=== PATIENT | female | born 1985 | race American Indian/Alaskan Native ===

== ENCOUNTER 2017-02-03 02:37 | Observation (INO) | payer MEDICAID, OTHER ==
[2017-02-03 02:55] VITALS: BMI 60.2
--- NOTE | 2017-02-03 03:11 | ED PDOC ---
Arrival/HPI - General Chief Complaint: Lower Extremity Problem/Injury Time Seen by Provider: 02/03/17 02:59 Historian: Patient - History of Present Illness Narrative History of Present Illness (Text): 02/03/17 03:08 Sydnee Barahona is a 31 year old female, whose past medical history includes obstructive sleep apnea, who presents to the Emergency department complaining of bilateral lower extremity swelling/redness/warmth. Patient states she has been experiencing bilateral lower extremity swelling intermittently for the past few months, right side greater than the left with associated pain for this past week. Patient reports she has a history of lower extremity cellulitis and notes she stands on her feet frequently at work. Patient denies any fever, chills, shortness of breath, nausea, vomiting, diarrhea, back pain, neck pain, headache, dizziness, or any other complaints. Time/Duration: Other (few months) Symptom Onset: Gradual Symptom Course: Unchanged, Intermittent Activities at Onset: Light Context: Home Past Medical History - Provider Review Nursing Documentation Reviewed: Yes - Cardiac Hx Cardiac Disorders: No - Pulmonary Hx Asthma: Yes Hx Sleep Apnea: Yes - Neurological Hx Neurological Disorder: No - HEENT Hx HEENT Disorder: No - Renal Hx Renal Disorder: No - Endocrine/Metabolic Hx Endocrine Disorders: No - Hematological/Oncological Hx Blood Disorders: No - Integumentary Hx Dermatological Disorder: No - Musculoskeletal/Rheumatological Hx Musculoskeletal Disorders: No - Gastrointestinal Hx Gastrointestinal Disorders: No - Genitourinary/Gynecological Hx Genitourinary Disorders: No - Psychiatric Hx Psychophysiologic Disorder: No Hx Substance Use: No Family/Social History - Physician Review Nursing Documentation Reviewed: Yes Family/Social History: No Known Family HX Smoking Status: Never Smoked Hx Alcohol Use: No Hx Substance Use: No Allergies/Home Meds Allergies/Adverse Reactions: Allergies Penicillins Allergy (Verified 02/03/17 03:02) SHORTNESS OF BREATH Home Medications: Home Meds Medication Instructions Recorded Confirmed No Known Home Med 02/03/17 02/03/17 Review of Systems - Physician Review All systems were reviewed & negative as marked: Yes - Review of Systems Constitutional: Normal. absent: Fevers Eyes: Normal ENT: Normal Respiratory: Normal. absent: SOB, Cough Cardiovascular: Normal. absent: Chest Pain Gastrointestinal: Normal. absent: Abdominal Pain, Diarrhea, Nausea, Vomiting Genitourinary Female: Normal. absent: Dysuria, Frequency, Hematuria, Urine Output Changes Musculoskeletal: Other (+bilateral lower extremity swelling). absent: Back Pain , Neck Pain Skin: Normal Neurological: Normal Endocrine: Normal Hemo/Lymphatic: Normal Psychiatric: Normal Physical Exam Vital Signs Reviewed: Yes Vital Signs Temp Pulse Resp BP Pulse Ox 02/03/17 05:37 76 21 132/82 100 02/03/17 02:54 98.1 F 76 19 152/78 H 100 Temperature: Afebrile Blood Pressure: Hypertensive Pulse: Regular Respiratory Rate: Normal Appearance: Positive for: Well-Appearing, Non-Toxic, Comfortable Pain Distress: None Mental Status: Positive for: Alert and Oriented X 3 - Systems Exam Head: Present: Atraumatic, Normocephalic Pupils: Present: PERRL Extroacular Muscles: Present: EOMI Conjunctiva: Present: Normal Mouth: Present: Moist Mucous Membranes Neck: Present: Normal Range of Motion Respiratory/Chest: Present: Clear to Auscultation, Good Air Exchange. No: Respiratory Distress, Accessory Muscle Use Cardiovascular: Present: Regular Rate and Rhythm, Normal S1, S2. No: Murmurs Abdomen: Present: Normal Bowel Sounds. No: Tenderness, Distention, Peritoneal Signs Upper Extremity: Present: Normal Inspection. No: Cyanosis, Edema Lower Extremity: Present: CALF TENDERNESS (Calf tenderness to right calf), NORMAL PULSES, Tenderness (Tenderness to anterior aspect of left lower leg), Erythema (Erythema to right lower leg with warmth ). No: Edema, Cyanosis, Deformity Neurological: Present: GCS=15, CN II-XII Intact, Speech Normal Skin: Present: Warm, Dry, Normal Color. No: Rashes Psychiatric: Present: Alert, Oriented x 3, Normal Insight, Normal Concentration Medical Decision Making ED Course and Treatment: 02/03/17 03:08 Impression: 31 year old female complaining of bilateral lower extremity swelling. Differential Diagnosis include but are not limited to: DVT vs. cellulitis Plan: -- US Duplex Lower Extremities -- Labs -- Urinalysis -- Reassess and disposition Progress Notes: 02/03/17 04:09 Reviewed sono, US Duplex Lower Extremities shows limited study, grossly normal. 02/03/17 05:04 Case discussed with medical review specialist long goods drier, who is aware and agrees with plan. 02/03/17 05:[address] Harper, who is aware and agrees with plan. Accepts pt in to hospitalist service. [facility] to [facility] observation for cellulitis. - Lab Interpretations Lab Results: 02/03/17 03:26 02/03/17 03:26 Lab Results 02/03/17 04:25: Urine Color Yellow, Urine Appearance Clear, Urine pH 6.0, Ur Specific [place] 1.025, Urine Protein Negative, Urine Glucose (UA) Negative, Urine Ketones Trace H, Urine Blood Negative, Urine Nitrate Negative, Urine Bilirubin Negative, Urine Urobilinogen 0.2, Ur Leukocyte Esterase Negative, Urine HCG, Qual Negative 02/03/17 03:26: WBC 6.8, RBC 4.56, Hgb 10.1 L, Hct 32.8 L, MCV 71.9 L, MCH 22.1 L, MCHC 30.8 L, RDW 17.2 H, Plt Count 330, MPV 9.6 02/03/17 03:26: Sodium 136, Potassium 4.1, Chloride 100, Carbon Dioxide 26, Anion Gap 14, BUN 16, Creatinine 0.7, Est GFR ( Amer) > 60, Est GFR (Non- Af Amer) > 60, Random Glucose 97, Calcium 8.8, Total Bilirubin 0.5, AST 23, ALT 33, Alkaline Phosphatase 57, Total Protein 8.0, Albumin 4.0, Globulin 4.0, Albumin/Globulin Ratio 1.0 L 02/03/17 03:26: PT 10.4, INR 0.96, APTT 29.6 I have reviewed the lab results: Yes - RAD Interpretation Radiology Orders: 02/03/17 03:11 DUPLEX LOWER EXTRM VEIN BILAT [US] Stat - Medication Orders Current Medication Orders: Acetaminophen (Tylenol 325mg Tab) 650 mg PO Q6 PRN PRN Reason: Pain, moderate (4-7) Docusate Sodium (Colace) 100 mg PO BID TONY Enoxaparin Sodium (Lovenox) 40 mg SC DAILY TONY PRN Reason: Protocol Famotidine (Pepcid) 20 mg PO BID TONY Vancomycin HCl (Vancomycin 1gm) 1 gm in 250 mls @ 167 mls/hr IVPB STAT STA PRN Reason: Protocol Stop: 02/03/17 06:45 Aztreonam (Azactam 1 Gm) 100 mls @ 100 mls/hr IVPB Q8 TONY PRN Reason: Protocol Stop: 02/03/17 22:59 Vancomycin HCl (Vancomycin 1gm) 1 gm in 250 mls @ 167 mls/hr IVPB Q12H TONY PRN Reason: Protocol Ketorolac Tromethamine (Toradol) 30 mg IVP Q6 PRN PRN Reason: Pain, severe (8-10) Discontinued Medications Aztreonam (Azactam 1 Gm) 100 mls @ 100 mls/hr IVPB STAT STA PRN Reason: Protocol Stop: 02/03/17 06:14 Last Admin: 02/03/17 05:44 Dose: 100 mls/hr - Scribe Statement The provider has reviewed the documentation as recorded by the Domingoibhallie Currie All medical record entries made by the Domingoibhallie were at my direction and personally dictated by me. I have reviewed the chart and agree that the record accurately reflects my personal performance of the history, physical exam, medical decision making, and the department course for this patient. I have also personally directed, reviewed, and agree with the discharge instructions and disposition. Disposition/Present on Arrival - Present on Arrival Any Indicators Present on Arrival: No History of DVT/PE: No History of Uncontrolled Diabetes: No Urinary Catheter: No History of Decub. Ulcer: No History Surgical Site Infection Following: None - Disposition Have Diagnosis and Disposition been Completed?: Yes Diagnosis: Cellulitis of leg Disposition: HOSPITALIZED Disposition Time: 05:18 Patient Problems: Current Active Problems Problem Status Onset Cellulitis of leg Acute Condition: GOOD
[2017-02-03 03:40] LABS: HEMATOCRIT 32.8 % (36.0-48.0); MEAN CELL VOLUME 71.9 fL (80.0-105.0); MEAN CORPUSCULAR HEMOGLOBIN 22.1 pg (25.0-35.0); MEAN CORPUSCULAR HGB CONC 30.8 g/dl (31.0-37.0); MEAN PLATELET VOLUME 9.6 fl (7.0-11.0); RED CELL DISTRIBUTION WIDTH 17.2 % (11.5-14.5); WHITE BLOOD COUNT 6.8 10^3/ul (4.5-11.0)
[2017-02-03 03:48] LABS: ALKALINE PHOSPHATASE 57 U/L (38-133); ALT/SGPT 33 U/L (7-56); AST/SGOT 23 U/L (15-39); BILIRUBIN,TOTAL 0.5 mg/dL (0.2-1.3); BLOOD UREA NITROGEN 16 mg/dL (7-21); CALCIUM 8.8 mg/dL (8.4-10.5); CARBON DIOXIDE 26 mmol/L (21-33); CHLORIDE 100 mmol/L (98-107); GFR AFRICAN-AMERICAN > 60; GLUCOSE,RANDOM 97 mg/dL (70-110); POTASSIUM 4.1 mmol/L (3.6-5.0); SODIUM 136 mmol/L (132-148)
[2017-02-03 04:02] LABS: INR 0.96 (0.93-1.08); PARTIAL THROMBOPLASTIN TIME 29.6 Seconds (23.7-30.8)
[2017-02-03 04:50] LABS: URINE BILIRUBIN NEGATIVE (NEGATIVE); URINE BLOOD NEGATIVE (NEGATIVE); URINE GLUCOSE (UA) NEGATIVE (NEGATIVE); URINE KETONE TRACE mg/dL (NEGATIVE); URINE LEUKOCYTE ESTERASE NEGATIVE Leu/uL (NEGATIVE); URINE PROTEIN NEGATIVE mg/dL (<30 mg/dL); URINE UROBILINOGEN 0.2 E.U./dL (<1 E.U./dL)
[2017-02-03 04:58] LABS: URINE APPEARANCE CLEAR (CLEAR); URINE COLOR YELLOW (YELLOW)
[2017-02-03] MEDS ORDERED: Aztreonam 1 Gm in NS 100mL 100 ML IVPB STA (05:15)
[2017-02-03] MEDS ORDERED: Vancomycin 1gm in NS 250ml 1 GM/250 ML BAG IVPB STA (05:16)
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
--- NOTE | 2017-02-03 09:07 | US ---
HISTORY: Leg pain and swelling. Evaluate for DVT PHYSICIAN(S): Mao Retana MD. TECHNIQUE: Duplex sonography and color-flow Doppler with graded compression were used to evaluate the deep venous systems of both lower extremities. FINDINGS: The exam is very limited by body habitus and edema. The tibial veins are not adequately seen. The visualized deep venous systems of both lower extremities are sonographically normal and compressible. Normal wave forms and augmentation are seen. There is no sonographic evidence for deep venous thrombosis in the visualized segments of both lower extremities. IMPRESSION: No sonographic evidence for deep venous thrombosis in the visualized segments of both lower extremities. Very limited study.
[2017-02-03] MEDS: Enoxaparin 40 mg Syringe SC SCH (09:29)
[2017-02-03] MEDS ORDERED: Aztreonam 1 Gm in NS 100mL 100 ML IVPB SCH (14:00)
--- NOTE | 2017-02-03 14:56 | CON ---
DATE: 02/03/2017 The patient seen in room 368, bed 2. CHIEF COMPLAINT: Lower extremity edema and erythema times several days. HISTORY OF PRESENT ILLNESS: This is a 31-year-old female with morbid obesity with a BMI of 60, who a lso has asthma and sleep apnea, who was seen in the Emergency Room by Dr. Shane Jay. The urmila ent is ALLERGIC TO PENICILLIN. The type of allergy is not clear. The patient was admitted with lowe r extremity erythema and swelling. REVIEW OF SYSTEMS: The patient denies any fevers and chills, no chest pain, shortness of breath or c ough, no hemoptysis, no abdominal pain, diarrhea or constipation. PAST MEDICAL HISTORY: Significant for asthma and sleep apnea. PAST SURGICAL HISTORY: Noncontributory. ALLERGIES: THE PATIENT IS ALLERGIC TO PENICILLIN, TYPE OF ALLERGY IS NOT CLEAR. PHYSICAL EXAMINATION: VITAL SIGNS: Temperature is 98, blood pressure is 150/70, respiratory rate of 18, it was up to 21, h eart rate of 76. HEENT: Unremarkable. NECK: Supple. LUNGS: Have decreased breath sounds. HEART: Normal S1, S2. ABDOMEN: Soft, nontender. LOWER EXTREMITIES: Reveal erythema and edema. No break in the skin. No discharge. She does have t inea on her feet. LABORATORY EXAMINATION: Reveals a white count of 6.8, hemoglobin of 10. Chemistries are normal. Ur inalysis is normal. There is a trace of ketones. No microbiology is available. The patient's blood sugar is 97. Review of the orders reveals the patient is on Azactam and vancomycin. ASSESSMENT AND PLAN: A 31-year-old female with morbid obesity, body mass index of 60, asthma, sleep apnea with bilateral lower extremity cellulitis. The patient is ALLERGIC TO PENICILLIN. We will tapan at the patient with vancomycin. No need for Azactam. It is unusual for her to have gram-negative ce llulitis. Will order an HIV test. May be able to use p.o. Zyvox upon discharge or p.o. Levaquin upon discharge. Lower extremity Dopplers are negative for deep venous thrombosis. I would recommend Lotr isone cream for lower extremities bilaterally once the erythema and edema is less. Jan Sánchez MD cc: 350 TT: 02/03/2017 14:55:19 Confirmation # [id number] Dictation # [id number] rn
[2017-02-03] MEDS: Clotrimazole/Betamethasone Cream(15 gm) TOP SCH (17:12)
[2017-02-03] MEDS: Vancomycin 1gm in NS 250ml 1 GM/250 ML BAG IVPB SCH (17:13)
[2017-02-03 17:43] VITALS: O2SAT 99
[2017-02-04] MEDS: Vancomycin 1gm in NS 250ml 1 GM/250 ML BAG IVPB SCH (06:02)
[2017-02-04 07:25] VITALS: BP 135/67; PULSE 73; RESP 18; TEMP 97.8
[2017-02-04 08:07] LABS: ADD MANUAL DIFF? NO
[2017-02-04 08:12] LABS: BASO # 0.03 K/mm3 (0.0-2.0); BASO % 0.6 % (0.0-3.0); EOS # 0.2 (0.0-0.7); EOS % 3.4 % (1.5-5.0); GRAN # 2.43 (1.4-6.5); GRAN % 46.1 % (50.0-68.0); LYMPH # 2.3 (1.2-3.4); LYMPH % 43.2 % (22.0-35.0); MEAN CELL VOLUME 72.9 fL (80.0-105.0); MEAN CORPUSCULAR HEMOGLOBIN 21.6 pg (25.0-35.0); MEAN CORPUSCULAR HGB CONC 29.7 g/dl (31.0-37.0); MEAN PLATELET VOLUME 9.9 fl (7.0-11.0); MONO # 0.4 (0.1-0.6); MONO % 6.7 % (1.0-6.0); PLATELET COUNT 318 10^3/uL (120.0-450.0); RED CELL DISTRIBUTION WIDTH 17.3 % (11.5-14.5); WHITE BLOOD COUNT 5.3 10^3/ul (4.5-11.0)
[2017-02-04 08:40] LABS: ALKALINE PHOSPHATASE 48 U/L (38-133); ALT/SGPT 29 U/L (7-56); AST/SGOT 23 U/L (15-39); BILIRUBIN,TOTAL 0.3 mg/dL (0.2-1.3); BLOOD UREA NITROGEN 8 mg/dL (7-21); CALCIUM 8.6 mg/dL (8.4-10.5); CARBON DIOXIDE 28 mmol/L (21-33); CHLORIDE 102 mmol/L (98-107); GFR AFRICAN-AMERICAN > 60; GLUCOSE,RANDOM 110 mg/dL (70-110); POTASSIUM 4.2 mmol/L (3.6-5.0); SODIUM 137 mmol/L (132-148); TOTAL PROTEIN 7.1 g/dL (5.8-8.3)
[2017-02-04] MEDS: Clotrimazole/Betamethasone Cream(15 gm) TOP SCH (09:05)
[2017-02-04] MEDS: Enoxaparin 40 mg Syringe SC SCH (09:06)
--- NOTE | 2017-02-04 10:15 | PN ---
DATE: 02/04/2017 The patient is in bed, in no acute distress, nontoxic. PHYSICAL EXAMINATION: VITAL SIGNS: Temperature is 98, blood pressure is 158/90, respiratory rate of 20. HEENT: Unremarkable. NECK: Supple. LUNGS: Have decreased breath sounds. HEART: Normal S1, S2. ABDOMEN: Soft, nontender. LABORATORY DATA: Reveals a white count of 5.3, hemoglobin of 9, platelets are noted. Chemistries ar e normal. Urinalysis is unremarkable. Microbiology reveals the blood cultures are no growth. ASSESSMENT AND PLAN: A 31-year-old female with morbid obesity, body mass index of 60, asthma, sleep apnea, bilateral lower extremity cellulitis, ALLERGIC TO PENICILLIN. On vancomycin and somewhat impr oving. Will follow closely with you. Jan Sánchez MD cc: 350 TT: 02/04/2017 10:14:06 Confirmation # [id number] Dictation # [id number] mn
--- NOTE | 2017-02-04 10:25 | CP.PCM.DIS ---
<Romina Erickson - Last Filed: 02/04/17 13:45> Provider - Provider Date of Admission: 02/03/17 05:17 Attending physician: Lou Wooten MD Consults: ID: Dr. Caballero Time Spent in preparation of Discharge (in minutes): 45 Diagnosis - Discharge Diagnosis (1) Obesity Status: Chronic (2) Tinea pedis Status: Chronic (3) Cellulitis of leg Status: Acute Hospital Course - Lab Results Lab Results: Micro Results 02/03/17 05:30 Blood Blood Culture - Preliminary NO GROWTH AFTER 24 HOURS Most Recent Lab Values WBC 5.3 10^3/ul (4.5-11.0) D 02/04/17 07:30 RBC 4.39 10^6/uL (3.5-6.1) 02/04/17 07:30 Hgb 9.5 gm/dL (12.0-16.0) L 02/04/17 07:30 Hct 32.0 % (36.0-48.0) L 02/04/17 07:30 MCV 72.9 fL (80.0-105.0) L 02/04/17 07:30 MCH 21.6 pg (25.0-35.0) L 02/04/17 07:30 MCHC 29.7 g/dl (31.0-37.0) L 02/04/17 07:30 RDW 17.3 % (11.5-14.5) H 02/04/17 07:30 Plt Count 318 10^3/uL (120.0-450.0) 02/04/17 07:30 MPV 9.9 fl (7.0-11.0) 02/04/17 07:30 Gran % 46.1 % (50.0-68.0) L 02/04/17 07:30 Lymph % (Auto) 43.2 % (22.0-35.0) H 02/04/17 07:30 Swift % (Auto) 6.7 % (1.0-6.0) H 02/04/17 07:30 Eos % (Auto) 3.4 % (1.5-5.0) 02/04/17 07:30 Baso % (Auto) 0.6 % (0.0-3.0) 02/04/17 07:30 Gran # 2.43 (1.4-6.5) 02/04/17 07:30 Lymph # 2.3 (1.2-3.4) 02/04/17 07:30 Swift # 0.4 (0.1-0.6) 02/04/17 07:30 Eos # 0.2 (0.0-0.7) 02/04/17 07:30 Baso # 0.03 K/mm3 (0.0-2.0) 02/04/17 07:30 PT 10.4 Seconds (9.9-11.8) 02/03/17 03:26 INR 0.96 (0.93-1.08) 02/03/17 03:26 APTT 29.6 Seconds (23.7-30.8) 02/03/17 03:26 Sodium 137 mmol/L (132-148) 02/04/17 07:30 Potassium 4.2 mmol/L (3.6-5.0) 02/04/17 07:30 Chloride 102 mmol/L (98-107) 02/04/17 07:30 Carbon Dioxide 28 mmol/L (21-33) 02/04/17 07:30 Anion Gap 11 (10-20) 02/04/17 07:30 BUN 8 mg/dL (7-21) 02/04/17 07:30 Creatinine 0.6 mg/dL (0.5-1.4) 02/04/17 07:30 Est GFR ( Amer) > 60 02/04/17 07:30 Est GFR (Non-Af Amer) > 60 02/04/17 07:30 Random Glucose 110 mg/dL (70-110) 02/04/17 07:30 Hemoglobin A1c 5.5 % (4.2-6.5) 02/03/17 05:30 Calcium 8.6 mg/dL (8.4-10.5) 02/04/17 07:30 Total Bilirubin 0.3 mg/dL (0.2-1.3) 02/04/17 07:30 AST 23 U/L (15-39) 02/04/17 07:30 ALT 29 U/L (7-56) 02/04/17 07:30 Alkaline Phosphatase 48 U/L (38-133) 02/04/17 07:30 NT-Pro-B Natriuret Pep 62.5 pg/mL (0-450) 02/03/17 05:30 Total Protein 7.1 g/dL (5.8-8.3) 02/04/17 07:30 Albumin 3.5 g/dL (3.0-4.8) 02/04/17 07:30 Globulin 3.6 gm/dL 02/04/17 07:30 Albumin/Globulin Ratio 1.0 (1.1-1.8) L 02/04/17 07:30 Urine Color Yellow (YELLOW) 02/03/17 04:25 Urine Appearance Clear (CLEAR) 02/03/17 04:25 Urine pH 6.0 (4.7-8.0) 02/03/17 04:25 Ur Specific [place] 1.025 (1.005-1.035) 02/03/17 04:25 Urine Protein Negative mg/dL (<30 mg/dL) 02/03/17 04:25 Urine Glucose (UA) Negative mg/dL (NEGATIVE) 02/03/17 04:25 Urine Ketones Trace mg/dL (NEGATIVE) H 02/03/17 04:25 Urine Blood Negative (NEGATIVE) 02/03/17 04:25 Urine Nitrate Negative (NEGATIVE) 02/03/17 04:25 Urine Bilirubin Negative (NEGATIVE) 02/03/17 04:25 Urine Urobilinogen 0.2 E.U./dL (<1 E.U./dL) 02/03/17 04:25 Ur Leukocyte Esterase Negative Castillo/uL (NEGATIVE) 02/03/17 04:25 Urine HCG, Qual Negative (NEGATIVE) 02/03/17 04:25 - Hospital Course Hospital Course: 31F w/PMH sig for morbid obesity, sleep apnea, and asthma admitted for B/L LE pain & swelling x 1 yr. Pt reports that over the past year, she has had intermittent pain & B/L LE swelling, which is associated to standing for long periods of time and sitting up. Over the past 2 weeks, the pain and swelling has worsened. Pt reports inability to get up, ambulate, place pressure on legs , bend right knee due to pain/stiffness. Pain is sharp, radiates up leg to thigh, located at medial aspect of proximal leg, intermittent. Pain is alleviated by Tylenol 3 and Percocet, minimally alleviated by Naproxen. No inciting or aggravating factors identified. LLE pain > RLE. Pt has taken OTC water pills for swelling with some resolution, but swelling recurs. Pt reports new onset of numbness on anterior aspect of LLE. Has recently lost 27lbs via a low carb diet, has not incorporated exercise. Admits to muscle spasms, constipation, polydipsia. Denies N/V/F/C, SOB, CP, abdominal pain, changes in vision, MARTIN, recent illness, sore throat, rhinorrhea, changes in urinary habits. Patient was started on broad spectrum antibiotics on admission. Lower extremity ultrasound was negative for DVT. Patient's swelling and pain improved. Patient was also found to have rash consistent with tinea pedis on feet. She was started on topical anti-fungal. Patient also received physical therapy during her stay and was given exercises to further improve the lower extremity pain. Patient was also found to have microcytic anemia. She was discharged with iron supplements and asked ot follow up with PMD for further workup. Before leaving patient was interested in knowing her limitations and applying for disability due to low back pain. Patient has no disability noted. Physical therapy cleared patient for discharge and asked her to follow up outpatient for physical therapy. Had long discussion with patient stating that she needs to follow up outpatient with PMD to apply for this process. Patient also requested pain medication multiple times before leaving. She was given Motrin 400 mg TID prn for 2 days and asked to follow up with her PMD as outpatient. Patient is to follow up with PMD of her choice upon discharge. Patient i s also given information about the [facility]. Patient is encouraged to follow a strict low fat low carbohydrate diet and increase her exercise. Patient is discharged on the following medications: lortisone topical cream BID for 10 days, levaquid 750 mg po qd #7 tabs, and flexeril 5 mg PO TID #9 tabs, ferrous sulfate 325 mg po qd #30 and colace 100 mg po BID prn constipation #30 tabs. Medications will be delivered to patient before leaving. Patient is also given referral to physical therapy outpatient with diagnosis of low back pain for 3 times per week for 4 weeks. Please see MAR for full details. - Date & Time of H&P Date of H&P: 02/04/17 Time of H&P: 10:24 Discharge Exam - Head Exam Head Exam: ATRAUMATIC, NORMAL INSPECTION, NORMOCEPHALIC - Eye Exam Eye Exam: EOMI - ENT Exam ENT Exam: Mucous Membranes Moist - Respiratory Exam Respiratory Exam: Clear to PA & Lateral, NORMAL BREATHING PATTERN. absent: Rales, Rhonchi, Wheezes - Cardiovascular Exam Cardiovascular Exam: REGULAR RHYTHM, +S1, +S2. absent: Diastolic murmur, Gallop , Rubs, Systolic Murmur - GI/Abdominal Exam GI & Abdominal Exam: Normal Bowel Sounds, Soft, Unremarkable. absent: Distended , Firm, Guarding, Rigid, Tenderness - Extremities Exam Additional comments: Trace pretibial edema noted B/L - Neurological Exam Neurological exam: Alert, Oriented x3 - Psychiatric Exam Psychiatric exam: Normal Affect, Normal Mood - Skin Additional comments: dry rash noted on medial aspect of right foot. Discharge Plan - Discharge Medications Prescriptions: Clotrimazole/Betamethasone [Lotrisone] 15 gm EXT BID #1 tube Cyclobenzaprine [Flexeril] 5 mg PO TID PRN #9 tab PRN Reason: Muscle Spasm Docusate [Colace] 100 mg PO BID PRN #30 cap PRN Reason: Constipation Ferrous Sulfate 325 mg PO DAILY #30 tablet Ibuprofen [Motrin] 400 mg PO TID PRN #6 tab PRN Reason: Pain, Moderate (4-7) levoFLOXacin [Levaquin] 750 mg PO DAILY #7 tab - Follow Up Plan Condition: GOOD Disposition: HOME/ ROUTINE Instructions: Cellulitis (DC), Cellulitis (GEN), Obesity (DC) Additional Instructions: Patient is to follow up with PMD of her choice upon discharge. Patient i s also given information about the [facility]. Patient is encouraged to follow a strict low fat low carbohydrate diet and increase her exercise. Patient is discharged on the following medications: lortisone topical cream BID for 10 days, levaquid 750 mg po qd #7 tabs, and flexeril 5 mg PO TID #9 tabs, ferrous sulfate 325 mg po qd #30 and colace 100 mg po BID prn constipation #30 tabs, Motrin 400 mg PO TID prn #6 tabs. Medications will be delivered to patient before leaving. Patient is also given referral to physical therapy outpatient with diagnosis of low back pain for 3 times per week for 4 weeks. <Lou Wooten - Last Filed: 02/05/17 13:28> Provider - Provider Date of Admission: 02/03/17 05:17 Attending physician: Lou Wooten MD Hospital Course - Lab Results Lab Results: Micro Results 02/03/17 05:30 Blood Blood Culture - Preliminary NO GROWTH AFTER 48 HOURS Most Recent Lab Values WBC 5.3 10^3/ul (4.5-11.0) D 02/04/17 07:30 RBC 4.39 10^6/uL (3.5-6.1) 02/04/17 07:30 Hgb 9.5 gm/dL (12.0-16.0) L 02/04/17 07:30 Hct 32.0 % (36.0-48.0) L 02/04/17 07:30 MCV 72.9 fL (80.0-105.0) L 02/04/17 07:30 MCH 21.6 pg (25.0-35.0) L 02/04/17 07:30 MCHC 29.7 g/dl (31.0-37.0) L 02/04/17 07:30 RDW 17.3 % (11.5-14.5) H 02/04/17 07:30 Plt Count 318 10^3/uL (120.0-450.0) 02/04/17 07:30 MPV 9.9 fl (7.0-11.0) 02/04/17 07:30 Gran % 46.1 % (50.0-68.0) L 02/04/17 07:30 Lymph % (Auto) 43.2 % (22.0-35.0) H 02/04/17 07:30 Swift % (Auto) 6.7 % (1.0-6.0) H 02/04/17 07:30 Eos % (Auto) 3.4 % (1.5-5.0) 02/04/17 07:30 Baso % (Auto) 0.6 % (0.0-3.0) 02/04/17 07:30 Gran # 2.43 (1.4-6.5) 02/04/17 07:30 Lymph # 2.3 (1.2-3.4) 02/04/17 07:30 Swift # 0.4 (0.1-0.6) 02/04/17 07:30 Eos # 0.2 (0.0-0.7) 02/04/17 07:30 Baso # 0.03 K/mm3 (0.0-2.0) 02/04/17 07:30 PT 10.4 Seconds (9.9-11.8) 02/03/17 03:26 INR 0.96 (0.93-1.08) 02/03/17 03:26 APTT 29.6 Seconds (23.7-30.8) 02/03/17 03:26 Sodium 137 mmol/L (132-148) 02/04/17 07:30 Potassium 4.2 mmol/L (3.6-5.0) 02/04/17 07:30 Chloride 102 mmol/L (98-107) 02/04/17 07:30 Carbon Dioxide 28 mmol/L (21-33) 02/04/17 07:30 Anion Gap 11 (10-20) 02/04/17 07:30 BUN 8 mg/dL (7-21) 02/04/17 07:30 Creatinine 0.6 mg/dL (0.5-1.4) 02/04/17 07:30 Est GFR ( Amer) > 60 02/04/17 07:30 Est GFR (Non-Af Amer) > 60 02/04/17 07:30 Random Glucose 110 mg/dL (70-110) 02/04/17 07:30 Hemoglobin A1c 5.5 % (4.2-6.5) 02/03/17 05:30 Calcium 8.6 mg/dL (8.4-10.5) 02/04/17 07:30 Total Bilirubin 0.3 mg/dL (0.2-1.3) 02/04/17 07:30 AST 23 U/L (15-39) 02/04/17 07:30 ALT 29 U/L (7-56) 02/04/17 07:30 Alkaline Phosphatase 48 U/L (38-133) 02/04/17 07:30 NT-Pro-B Natriuret Pep 62.5 pg/mL (0-450) 02/03/17 05:30 Total Protein 7.1 g/dL (5.8-8.3) 02/04/17 07:30 Albumin 3.5 g/dL (3.0-4.8) 02/04/17 07:30 Globulin 3.6 gm/dL 02/04/17 07:30 Albumin/Globulin Ratio 1.0 (1.1-1.8) L 02/04/17 07:30 Urine Color Yellow (YELLOW) 02/03/17 04:25 Urine Appearance Clear (CLEAR) 02/03/17 04:25 Urine pH 6.0 (4.7-8.0) 02/03/17 04:25 Ur Specific [place] 1.025 (1.005-1.035) 02/03/17 04:25 Urine Protein Negative mg/dL (<30 mg/dL) 02/03/17 04:25 Urine Glucose (UA) Negative mg/dL (NEGATIVE) 02/03/17 04:25 Urine Ketones Trace mg/dL (NEGATIVE) H 02/03/17 04:25 Urine Blood Negative (NEGATIVE) 02/03/17 04:25 Urine Nitrate Negative (NEGATIVE) 02/03/17 04:25 Urine Bilirubin Negative (NEGATIVE) 02/03/17 04:25 Urine Urobilinogen 0.2 E.U./dL (<1 E.U./dL) 02/03/17 04:25 Ur Leukocyte Esterase Negative Castillo/uL (NEGATIVE) 02/03/17 04:25 Urine HCG, Qual Negative (NEGATIVE) 02/03/17 04:25 HIV 1&2 Ag/Ab, 4th Gen Nonreactive (Nonreactive) 02/04/17 07:30 Attending/Attestation - Attestation I have personally seen and examined this patient.: Yes I have fully participated in the care of the patient.: Yes I have reviewed all pertinent clinical information, including history, physical exam and plan: Yes Notes (Text): 02/05/17 13:25 Attending note; Patient seen and examined with resident. Patient is a 31-year-old morbidly obese female admitted with right lower extremity cellulitis. Treated with IV vancomycin. ID evaluation appreciated. Patient was also treated for tenia pedis. Doppler of the lower extremities negative. Patient complaint of muscle spasms in the back and occasional numbness in the legs upon prolonged sitting. Physical therapy evaluation appreciated. Outpatient PT prescription given. Flexeril given. Patient wants disability paperwork to be filled. Patient is currently not meeting criteria for disability. Advised to follow-up with PMD of choice. Diagnosis; Lower extremity cellulitis Tenia pedis Morbid obesity Anemia
== END 2017-02-04 15:57 | disposition home or self-care (01) ==
LOC: ED 02:37 → ERH 05:17 → 3RNO 06:40
PROVIDERS: ADMIT Internal Medicine; ATTEND Internal Medicine
DX: L03.115 Cellulitis of right lower limb (principal); L03.116 Cellulitis of left lower limb; B35.3 Tinea pedis; E66.01 Morbid (severe) obesity due to excess calories; Z68.44 Body mass index [BMI] 60.0-69.9, adult; J45.909 Unspecified asthma, uncomplicated; G47.33 Obstructive sleep apnea (adult) (pediatric); D50.9 Iron deficiency anemia, unspecified; K59.00 Constipation, unspecified; R63.1 Polydipsia; Z87.891 Personal history of nicotine dependence; Z88.0 Allergy status to penicillin; R20.0 Anesthesia of skin
CPT/HCPCS: 36415; 80053; 81003; 83036; 83880; 84703; 85025; 85027; 85610; 85730; 87040; 93970; 96365; 97116; 97162; 97530; 99285; G0378; G8978; G8979; G8980; J1650; J1885

== ENCOUNTER 2018-07-26 14:19 | Emergency (ER) | payer MEDICAID, OTHER ==
[2018-07-26 14:40] VITALS: BMI 57.9
--- NOTE | 2018-07-26 15:02 | ED PDOC ---
Arrival/HPI - General Chief Complaint: Female Genitourinary Time Seen by Provider: 07/26/18 14:40 Historian: Patient - History of Present Illness Narrative History of Present Illness (Text): 07/26/18 14:55 33yo morbidly, morbidly obese female with pmhx of Asthma and sleep apnea present to ED requesting a test. States her LMP was 3months ago and she took home test and it showed inconclusive. States he had history of irregular period in the past, but her period became more regular as she grew up. States she started spotting today and had lower abdominal cramping, which is similar to the symptoms she had 6years ago when she had miscarriage so she cameto the ED for test to r/o miscarriage. She denies any other complaint. Past Medical History - Provider Review Nursing Documentation Reviewed: Yes - Infectious Disease Hx of Infectious Diseases: None - Cardiac Hx Cardiac Disorders: No - Pulmonary Hx Asthma: Yes Hx Sleep Apnea: Yes - Neurological Hx Neurological Disorder: No - HEENT Hx HEENT Disorder: No - Renal Hx Renal Disorder: No - Endocrine/Metabolic Hx Endocrine Disorders: No - Hematological/Oncological Hx Blood Disorders: No - Integumentary Hx Dermatological Disorder: No - Musculoskeletal/Rheumatological Hx Falls: No - Gastrointestinal Hx Gastrointestinal Disorders: No - Genitourinary/Gynecological Hx Genitourinary Disorders: No - Psychiatric Hx Psychophysiologic Disorder: No Hx Substance Use: No Family/Social History - Physician Review Nursing Documentation Reviewed: Yes Family/Social History: Unknown Family HX Smoking Status: Former Smoker Hx Alcohol Use: No Hx Substance Use: No Allergies/Home Meds Allergies/Adverse Reactions: Allergies Penicillins Allergy (Verified 02/03/17 03:02) SHORTNESS OF BREATH Review of Systems - Physician Review All systems were reviewed & negative as marked: Yes - Review of Systems Constitutional: Normal Eyes: Normal ENT: Normal Respiratory: Normal Cardiovascular: Normal Gastrointestinal: Abdominal Pain Genitourinary Female: Vaginal Bleeding Musculoskeletal: Normal Skin: Normal Neurological: Normal Endocrine: Normal Hemo/Lymphatic: Normal Psychiatric: Normal Physical Exam Vital Signs Reviewed: Yes Temperature: Afebrile Blood Pressure: Normal Pulse: Regular Respiratory Rate: Normal Appearance: Positive for: Well-Appearing, Non-Toxic, Comfortable Pain Distress: None Mental Status: Positive for: Alert and Oriented X 3 - Systems Exam Head: Present: Atraumatic, Normocephalic Pupils: Present: PERRL Extroacular Muscles: Present: EOMI Conjunctiva: Present: Normal Mouth: Present: Moist Mucous Membranes Neck: Present: Normal Range of Motion Respiratory/Chest: Present: Clear to Auscultation, Good Air Exchange. No: Respiratory Distress, Accessory Muscle Use Cardiovascular: Present: Regular Rate and Rhythm, Normal S1, S2. No: Murmurs Abdomen: Present: Normal Bowel Sounds, Other (Soft). No: Tenderness, Distention, Peritoneal Signs, Guarding, McBurney's Point Tender Back: Present: Normal Inspection Upper Extremity: Present: Normal Inspection. No: Cyanosis, Edema Lower Extremity: Present: Normal Inspection. No: Edema Neurological: Present: GCS=15, CN II-XII Intact, Speech Normal Skin: Present: Warm, Dry, Normal Color. No: Rashes Psychiatric: Present: Alert, Oriented x 3, Normal Insight, Normal Concentration Medical Decision Making ED Course and Treatment: 07/26/18 18:46 Pt presented for stated history. Her Upreg was negative in ED and it was DW the pt. Referred to a MEDIATOR for possible oral contraceptive to reset her period. Disposition/Present on Arrival - Present on Arrival Any Indicators Present on Arrival: No History of DVT/PE: No History of Uncontrolled Diabetes: No Urinary Catheter: No History of Decub. Ulcer: No History Surgical Site Infection Following: None - Disposition Have Diagnosis and Disposition been Completed?: Yes Diagnosis: Negative test, Dysmenorrhea Disposition: HOME/ ROUTINE Disposition Time: 15:00 Patient Plan: Discharge Condition: STABLE Discharge Instructions (ExitCare): Tests, Menstrual Cramps (DC) Additional Instructions: Follow up with your Doctor Return to ED for any new or worsening symptoms Referrals: Addison Sue MD [Staff Provider] - Follow up with primary Forms: [employer] (Kyrgyz)
[2018-07-26 15:23] VITALS: BP 122/74; O2SAT 100
[2018-07-26 16:03] VITALS: PULSE 86; RESP 17; TEMP 97.6
== END 2018-07-26 15:15 | disposition home or self-care (01) ==
LOC: ED 14:19
DX: Z32.02 Encounter for pregnancy test, result negative (principal); N94.6 Dysmenorrhea, unspecified

== ENCOUNTER 2018-09-06 15:53 | Emergency (ER) | payer OTHER ==
[2018-09-06 15:53] VITALS: BMI 57.9
[2018-09-06 17:19] VITALS: RESP 20; O2SAT 100
--- NOTE | 2018-09-06 17:43 | ED PDOC ---
Arrival/HPI - General Chief Complaint: Trauma Time Seen by Provider: 09/06/18 15:59 - History of Present Illness Narrative History of Present Illness (Text): 09/06/18 17:44 33 yr old F w/ no ppmhx p/w R shoulder, elbow and wrist pain. Pt notes that yesterday he was sitting on a regular sized stool when the seat broke underneath her and she fell onto her R side of her body. She notes only impacting her R shoulder, R elbow and R wrist. No head impact or LOC. No neck pain. No abdominal pain or back pain. No shoulder pain. No other complaints. Past Medical History - Infectious Disease Hx of Infectious Diseases: None - Cardiac Hx Cardiac Disorders: No - Pulmonary Hx Asthma: Yes Hx Sleep Apnea: Yes - Neurological Hx Neurological Disorder: No - HEENT Hx HEENT Disorder: No - Renal Hx Renal Disorder: No - Endocrine/Metabolic Hx Endocrine Disorders: No - Hematological/Oncological Hx Blood Disorders: No - Integumentary Hx Dermatological Disorder: No - Musculoskeletal/Rheumatological Hx Falls: No - Gastrointestinal Hx Gastrointestinal Disorders: No - Genitourinary/Gynecological Hx Genitourinary Disorders: No - Psychiatric Hx Psychophysiologic Disorder: No Hx Substance Use: No - Anesthesia Hx Anesthesia: Yes Hx Anesthesia Reactions: No Hx Malignant Hyperthermia: No Family/Social History Family/Social History: Unknown Family HX Smoking Status: Former Smoker Hx Alcohol Use: No Hx Substance Use: No Allergies/Home Meds Allergies/Adverse Reactions: Allergies Penicillins Allergy (Verified 02/03/17 03:02) SHORTNESS OF BREATH Review of Systems - Review of Systems Constitutional: absent: Fatigue, Weight Change, Fevers, Night Sweats Eyes: absent: Vision Changes, Photophobia ENT: absent: Hearing Changes, Tinnitus Respiratory: absent: SOB, Cough Cardiovascular: absent: Chest Pain, Palpitations, Edema Gastrointestinal: absent: Abdominal Pain, Stool Changes, Constipation, Diarrhea, Nausea, Vomiting Genitourinary Female: absent: Dysuria, Frequency, Hematuria Musculoskeletal: Arthralgias (R elbow, shoulder and wrist). absent: Back Pain Skin: absent: Rash, Pruritis, Skin Lesions, Laceration Neurological: absent: Headache, Dizziness Psychiatric: absent: Anxiety Physical Exam Vital Signs Temp Pulse Resp BP Pulse Ox 09/06/18 15:53 98.4 F 74 20 142/86 100 Temperature: Afebrile Blood Pressure: Normal Pulse: Regular Respiratory Rate: Normal Appearance: Positive for: Well-Appearing Pain Distress: None Mental Status: Positive for: Alert and Oriented X 3 - Systems Exam Head: Present: Atraumatic, Normocephalic Pupils: Present: PERRL Extroacular Muscles: Present: EOMI Conjunctiva: Present: Normal Ears: Present: Normal Mouth: Present: Moist Mucous Membranes Pharnyx: Present: Normal, ERYTHEMA Nose (External): Present: Atraumatic Nose (Internal): No: Septal Hematoma Neck: Present: Normal Range of Motion. No: Meningeal Signs, MIDLINE TENDERNESS Respiratory/Chest: Present: Clear to Auscultation, Good Air Exchange Cardiovascular: Present: Regular Rate and Rhythm, Normal S1, S2. No: Murmurs Abdomen: Present: Normal Bowel Sounds. No: Tenderness, Distention, Rebound, Guarding Back: Present: Normal Inspection. No: CVA Tenderness Upper Extremity: Present: Normal Inspection, Normal ROM, NORMAL PULSES, Neurovascularly Intact, Other (R snuffbox tenderness pain, N/V intact. ). No: Cyanosis, Edema Lower Extremity: Present: Normal Inspection, NORMAL PULSES, Neurovascularly Intact, Capillary Refill < 2 s. No: Edema, CALF TENDERNESS Neurological: Present: GCS=15, CN II-XII Intact, Speech Normal Medical Decision Making ED Course and Treatment: 09/06/18 18:46 33 yr old F p/w accidental fall onto R shoulder, wrist and elbow. R snuffbox tenderness on exam. No N/V issues noted in any extremity. Normal neuro exam. Walking well in NAD. No blood thinners. Pt notes worsening pain and came to ED. Pelvis NOn-ttp. No RLE or LLE pain. No vertebral Tenderness. Pending XR. 09/06/[address] Chavez Pending XR pt in NAD - RAD Interpretation Radiology Orders: 09/06/18 17:26 CHEST TWO VIEWS (PA/LAT) [RAD] Stat ELBOW RIGHT 3 VIEWS ROUTINE [RAD] Stat SHOULDER RIGHT [RAD] Stat WRIST, RIGHT 3 VIEWS [RAD] Stat Disposition/Present on Arrival - Present on Arrival Any Indicators Present on Arrival: No History of DVT/PE: No History of Uncontrolled Diabetes: No Urinary Catheter: No History of Decub. Ulcer: No History Surgical Site Infection Following: None - Disposition Have Diagnosis and Disposition been Completed?: No Diagnosis: Right wrist injury Disposition: HOME/ ROUTINE Disposition Time: 19:00 Condition: GOOD Discharge Instructions (ExitCare): Common Wrist Injuries Additional Instructions: use splint follow up with orthopedics Prescriptions: Tramadol HCl [Ultram] 50 mg PO QID #8 tab Referrals: Saurav Rosenberg III, MD [Medical Doctor] - Follow up with primary Andrea Argueta MD [Primary Care Provider] - Follow up with primary Forms: [employer] ([place]), WORK NOTE
--- NOTE | 2018-09-06 20:34 | ED PDOC ---
Physical Exam Vital Signs Temp Pulse Resp BP Pulse Ox 09/06/18 15:53 98.4 F 74 20 142/86 100 Medical Decision Making ED Course and Treatment: 09/06/18 19:00 Case endorsed to me by Dr. Kimberly Murillo, pending XR, re-evaluation, and final disposition. 09/06/18 20:32 Reviewed radiology, XR Right Wrist shows no acute processes, no fractures. XR Right Elbow shows no acute processes, no fractures. XR Right Shoulder shows no acute processes, no fractures. CXR shows no acute processes, no fractures. - RAD Interpretation Radiology Orders: 09/06/18 17:26 CHEST ONE VIEW [RAD] Stat ELBOW RIGHT 3 VIEWS ROUTINE [RAD] Stat SHOULDER RIGHT [RAD] Stat WRIST, RIGHT 3 VIEWS [RAD] Stat [employer] Shop Supervisor: ED Physician Disposition/Present on Arrival - Present on Arrival Any Indicators Present on Arrival: No History of DVT/PE: No History of Uncontrolled Diabetes: No Urinary Catheter: No History of Decub. Ulcer: No History Surgical Site Infection Following: None - Disposition Have Diagnosis and Disposition been Completed?: Yes Diagnosis: Right wrist injury Disposition: HOME/ ROUTINE Disposition Time: 20:55 Condition: GOOD Discharge Instructions (ExitCare): Common Wrist Injuries Additional Instructions: use splint follow up with orthopedics Prescriptions: Tramadol HCl [Ultram] 50 mg PO QID #8 tab Referrals: Andrea Argueta MD [Primary Care Provider] - Follow up with primary Saurav Rosenberg III, MD [Medical Doctor] - Follow up with primary Forms: [employer] (Pashto), WORK NOTE
[2018-09-06] MEDS ORDERED: TraMADol/Apap 37.5/325 mg Tab PO STA (20:55)
[2018-09-06 21:48] VITALS: BP 126/86; PULSE 86; TEMP 98
--- NOTE | 2018-09-07 09:21 | RAD ---
Date of service: 09/06/2018 PROCEDURE: Radiographs of the Right Shoulder HISTORY: R shoulder pain COMPARISON: No prior. FINDINGS: BONES: No acute fracture or destructive bony lesion identified. JOINTS: Normal. Glenohumeral and acromioclavicular joints preserved. No osteoarthritis. SOFT TISSUES: Normal. OTHER FINDINGS: None. IMPRESSION: Unremarkable radiographs of the right shoulder.
--- NOTE | 2018-09-07 09:21 | RAD ---
Date of service: 09/06/2018 PROCEDURE: Right Wrist Radiographs. HISTORY: R wrist pain COMPARISON: None. FINDINGS: BONES: No acute fracture or destructive bony lesion identified. Navicular bone appears intact. JOINTS: Normal. No dislocation. SOFT TISSUES: Normal. OTHER FINDINGS: None. IMPRESSION: Unremarkable right wrist radiographs.
--- NOTE | 2018-09-07 11:23 | RAD ---
Date of service: 09/06/2018 HISTORY: r shoulder pain COMPARISON: Portable chest 09/13/2016. FINDINGS: LUNGS: No active pulmonary disease. PLEURA: No significant pleural effusion identified, no pneumothorax apparent. CARDIOVASCULAR: No aortic atherosclerotic calcification present. Normal cardiac size. No pulmonary vascular congestion. OSSEOUS STRUCTURES: No significant abnormalities. VISUALIZED UPPER ABDOMEN: Normal. OTHER FINDINGS: Bilateral breasts exert artifacts over the medial bases bilaterally. IMPRESSION: No interval acute cardiopulmonary disease appreciated.
--- NOTE | 2018-09-07 11:24 | RAD ---
Date of service: 09/06/2018 PROCEDURE: Radiographs of the right elbow. HISTORY: pain COMPARISON: No prior. FINDINGS: BONES: No acute fracture or destructive bony lesion identified. JOINTS: No subluxation or dislocation identified. SOFT TISSUES: Normal. JOINT EFFUSION: None. OTHER FINDINGS: None. IMPRESSION: Unremarkable radiographs of the right elbow.
== END 2018-09-06 21:47 | disposition home or self-care (01) ==
LOC: ED 15:53
DX: S69.91XA Unspecified injury of right wrist, hand and finger(s), initial encounter (principal); W07.XXXA Fall from chair, initial encounter; Y92.89 Other specified places as the place of occurrence of the external cause; Y99.0 Civilian activity done for income or pay

== ENCOUNTER 2018-11-01 15:46 | Emergency (ER) | payer MEDICAID, OTHER ==
[2018-11-01 16:20] VITALS: RESP 18; TEMP 98.5; O2SAT 97; BMI 55.7
--- NOTE | 2018-11-01 18:40 | ED PDOC ---
Arrival/HPI - General Chief Complaint: Weakness/Neurological Deficit Time Seen by Provider: 11/01/18 15:51 Historian: Patient - History of Present Illness Narrative History of Present Illness (Text): 11/01/18 18:28 33yo morbidly obese female female with past medical history of sleep apnea and Asthma who present with complaint of right arm pain and back x weeks. Patient states pain started after trauma on 09/06/18 . States she was seen here s/p and was referred to PT which she did for 2weeks and was suddenly stopped. States she came back to the emergency department because of the persistent pain. States she is going back and forth with her worker's comp and is causing her to have panic attacks. Denies history of current panic attack. States she is not on any analgesic. Her pain is worse with movement. Denies urinary/fecal incontinence, focal weakness, Past Medical History - Provider Review Nursing Documentation Reviewed: Yes - Infectious Disease Hx of Infectious Diseases: None - Reproductive Currently : No - Cardiac Hx Cardiac Disorders: No - Pulmonary Hx Respiratory Disorders: Yes Hx Asthma: Yes Hx Sleep Apnea: Yes - Neurological Hx Neurological Disorder: No - HEENT Hx HEENT Disorder: No - Renal Hx Renal Disorder: No - Endocrine/Metabolic Hx Endocrine Disorders: No - Hematological/Oncological Hx Blood Disorders: No - Integumentary Hx Dermatological Disorder: No - Musculoskeletal/Rheumatological Hx Musculoskeletal Disorders: No - Gastrointestinal Hx Gastrointestinal Disorders: No - Genitourinary/Gynecological Hx Genitourinary Disorders: No - Psychiatric Hx Psychophysiologic Disorder: No Hx Substance Use: No - Anesthesia Hx Anesthesia: Yes Hx Anesthesia Reactions: No Hx Malignant Hyperthermia: No Family/Social History - Physician Review Nursing Documentation Reviewed: Yes Family/Social History: Unknown Family HX Smoking Status: Former Smoker Hx Alcohol Use: No Hx Substance Use: No Allergies/Home Meds Allergies/Adverse Reactions: Allergies Penicillins Allergy (Verified 11/01/18 16:24) SHORTNESS OF BREATH Review of Systems - Physician Review All systems were reviewed & negative as marked: Yes - Review of Systems Constitutional: Normal Eyes: Normal ENT: Normal Respiratory: Normal Cardiovascular: Normal Gastrointestinal: Normal Genitourinary Female: Normal Musculoskeletal: Arthralgias (Right arm/back pain) Skin: Normal Neurological: Normal Endocrine: Normal Hemo/Lymphatic: Normal Psychiatric: Normal Physical Exam Vital Signs Reviewed: Yes Vital Signs Temp Pulse Resp BP Pulse Ox 11/01/18 16:19 98.5 F 86 18 152/94 H 97 Temperature: Afebrile Blood Pressure: Normal Pulse: Regular Respiratory Rate: Normal Appearance: Positive for: Well-Appearing, Non-Toxic, Comfortable Pain Distress: None Mental Status: Positive for: Alert and Oriented X 3 - Systems Exam Head: Present: Atraumatic, Normocephalic Pupils: Present: PERRL Extroacular Muscles: Present: EOMI Conjunctiva: Present: Normal Mouth: Present: Moist Mucous Membranes Neck: Present: Normal Range of Motion Respiratory/Chest: Present: Clear to Auscultation, Good Air Exchange. No: Respiratory Distress, Accessory Muscle Use Cardiovascular: Present: Regular Rate and Rhythm, Normal S1, S2. No: Murmurs Abdomen: No: Tenderness, Distention, Peritoneal Signs Back: Present: Paraspinal Tenderness (ight sided parathoracic/spinous tenderness). No: Midline Tenderness, Pain with Leg Raise Upper Extremity: Present: NORMAL PULSES, Tenderness (Right arm), Neurovascularly Intact. No: Cyanosis, Edema, Normal ROM (Limited on abduction up to 90degree secondary to pain), Swelling, Deformity Lower Extremity: Present: Normal Inspection. No: Edema Neurological: Present: GCS=15, CN II-XII Intact, Speech Normal, Motor Func Grossly Intact Skin: Present: Warm, Dry, Normal Color. No: Rashes Psychiatric: Present: Alert, Oriented x 3, Normal Insight, Normal Concentration Medical Decision Making ED Course and Treatment: 11/01/18 19:21 33yo female who present with stated history. She was ambulatory and neurologically intact LS and Thoracic spine xray - No acute fracture noted Result was DW the pt. Her pain was controlled in emergency department with medication. She was DC home with lidoderm and Naprosyn. referred to ortho. - RAD Interpretation Radiology Orders: 11/01/18 17:07 LS SPINE WITH OBL > 18 YRS OLD [RAD] Stat 11/01/18 17:08 DORSAL (THORACIC) SPINE [RAD] Stat - Medication Orders Current Medication Orders: Discontinued Medications Ketorolac Tromethamine (Toradol) 60 mg IM STAT STA Stop: 11/01/18 17:25 Last Admin: 11/01/18 17:56 Dose: 60 mg MAR Pain Assessment Document 11/01/18 17:56 KV (Rec: 11/01/18 17:57 KV [facility]-21) Pain Reassessment Is this a pain reassessment? No IM Administration Charges Document 11/01/18 17:56 KV (Rec: 11/01/18 17:57 KV [facility]-21) Injection Site MAR Injection Site Right Gluteus Medius Charges for Administration # of IM Administrations 1 Disposition/Present on Arrival - Present on Arrival Any Indicators Present on Arrival: No History of DVT/PE: No History of Uncontrolled Diabetes: No Urinary Catheter: No History of Decub. Ulcer: No History Surgical Site Infection Following: None - Disposition Have Diagnosis and Disposition been Completed?: Yes Diagnosis: Obesity, Arm pain, Back pain Disposition: HOME/ ROUTINE Disposition Time: 18:55 Patient Plan: Discharge Patient Problems: Current Active Problems Problem Status Onset Arm pain Acute Back pain Acute Obesity Chronic Condition: STABLE Discharge Instructions (ExitCare): Shoulder Pain (DC) Additional Instructions: Follow up with your Doctor/orthopedist Return to emergency department for any new or worsening symptoms Prescriptions: Lidocaine 5% [Lidoderm] 1 patch TP DAILY #10 patch Naproxen [Naprosyn] 500 mg PO BID #20 tablet Referrals: Andrea Argueta MD [Primary Care Provider] - Follow up with primary Forms: [employer] ([place])
[2018-11-01 18:49] VITALS: BP 148/86; PULSE 79
--- NOTE | 2018-11-02 08:41 | RAD ---
Date of service: 11/01/2018 HISTORY: thoracic pain COMPARISON: No prior. FINDINGS: BONES: Alignment maintained. No fracture. DISC SPACES: Normal. SOFT TISSUES: Normal. OTHER FINDINGS: None. IMPRESSION: Normal radiographs of the thoracic spine.
--- NOTE | 2018-11-02 08:42 | RAD ---
Date of service: 11/01/2018 PROCEDURE: Radiographs of the Lumbar Spine. HISTORY: back pain COMPARISON: No prior. FINDINGS: BONES: Normal alignment. No listhesis. No fracture. DISC SPACES: Unremarkable. OTHER FINDINGS: None. IMPRESSION: Unremarkable radiographs of the lumbar spine.
== END 2018-11-01 19:27 | disposition home or self-care (01) ==
LOC: ED 15:46
DX: M79.601 Pain in right arm (principal); M54.9 Dorsalgia, unspecified; E66.01 Morbid (severe) obesity due to excess calories; G47.30 Sleep apnea, unspecified; Z87.891 Personal history of nicotine dependence
CPT/HCPCS: 72070; 72110; 81025; 96372; 99285; J1885

== ENCOUNTER 2018-11-12 21:03 | Emergency (ER) | payer OTHER ==
[2018-11-12 21:04] VITALS: BMI 55.7
[2018-11-12 21:18] VITALS: RESP 18; TEMP 98.1; O2SAT 98
--- NOTE | 2018-11-12 22:06 | ED PDOC ---
Arrival/HPI <MistyShane - Last Filed: 11/12/18 22:31> - General Historian: Patient - History of Present Illness Narrative History of Present Illness (Text): 11/12/18 22:01 Sydnee Barahona is a 33 year old female who presents to the ED complaining of headache and neck pain. Patient states she has been experiencing these symptoms since a fall at work in September 2018. Patient was initially seen here when injury occurred. Patient was not sure if she hit her head during the fall at work and denies any loss of consciousness at that time. Patient states she has been experiencing a headache with photosensitivity since the fall at work. Patient notes she has mentioned her symptoms to the workman's compensation doctor but states "nothing has been done yet." Otherwise, patient denies any fever, URI symptoms, nausea, vomiting, history of similar headaches in the past, or any other complaints. Symptom Onset: Gradual Symptom Course: Unchanged Activities at Onset: Light Context: Home, Work <Violette Menendez PA-C - Last Filed: 11/12/18 23:54> - General Chief Complaint: Headache Time Seen by Provider: 11/12/18 21:18 Past Medical History - Provider Review Nursing Documentation Reviewed: Yes - Infectious Disease Hx of Infectious Diseases: None - Reproductive Currently : No - Cardiac Hx Cardiac Disorders: No - Pulmonary Hx Respiratory Disorders: Yes Hx Asthma: Yes Hx Sleep Apnea: Yes - Neurological Hx Neurological Disorder: No - HEENT Hx HEENT Disorder: No - Renal Hx Renal Disorder: No - Endocrine/Metabolic Hx Endocrine Disorders: No - Hematological/Oncological Hx Blood Disorders: No - Integumentary Hx Dermatological Disorder: No - Musculoskeletal/Rheumatological Hx Musculoskeletal Disorders: No - Gastrointestinal Hx Gastrointestinal Disorders: No - Genitourinary/Gynecological Hx Genitourinary Disorders: No - Psychiatric Hx Psychophysiologic Disorder: No Hx Substance Use: No - Anesthesia Hx Anesthesia: Yes Hx Anesthesia Reactions: No Hx Malignant Hyperthermia: No <Violette Menendez PA-C - Last Filed: 11/12/18 23:54> Family/Social History - Physician Review Nursing Documentation Reviewed: Yes Family/Social History: Unknown Family HX Smoking Status: Former Smoker Hx Alcohol Use: No Hx Substance Use: No <Violette Menendez PA-C - Last Filed: 11/12/18 23:54> Allergies/Home Meds <Shane Jay - Last Filed: 11/12/18 22:31> <Violette Menendez PA-C - Last Filed: 11/12/18 23:54> Allergies/Adverse Reactions: Allergies Penicillins Allergy (Verified 11/12/18 21:11) SHORTNESS OF BREATH Review of Systems - Physician Review All systems were reviewed & negative as marked: Yes - Review of Systems Constitutional: absent: Fevers Eyes: Photophobia Respiratory: absent: Cough Gastrointestinal: absent: Nausea, Vomiting Musculoskeletal: Neck Pain. absent: Back Pain Skin: absent: Rash Neurological: Headache <Violette Menendez PA-C - Last Filed: 11/12/18 23:54> Physical Exam Vital Signs Temp Pulse Resp BP Pulse Ox 11/12/18 21:16 98.1 F 83 18 158/67 H 98 <Shane Jay - Last Filed: 11/12/18 22:31> Vital Signs Reviewed: Yes Vital Signs Temp Pulse Resp BP Pulse Ox 11/12/18 21:16 98.1 F 83 18 158/67 H 98 Temperature: Afebrile Blood Pressure: Normal Pulse: Regular Respiratory Rate: Normal Appearance: Positive for: Well-Appearing, Non-Toxic, Comfortable Pain Distress: Mild Mental Status: Positive for: Alert and Oriented X 3 - Systems Exam Head: Present: Atraumatic, Normocephalic Pupils: Present: PERRL Extroacular Muscles: Present: EOMI Conjunctiva: Present: Normal Ears: Present: Normal, NORMAL TM, Normal Canal. No: Erythema, TM Bulging, Fluid, TM Perf Mouth: Present: Moist Mucous Membranes Pharnyx: Present: Normal. No: ERYTHEMA, EXUDATE, TONSILS ENLARGED, Peritonsilar Swelling, Uvular Deviation, Muffled/Hoarse Voice, Strider, Soft Palate/Uvular Edema Nose (External): Present: Atraumatic Nose (Internal): Present: Normal Inspection Neck: Present: Normal Range of Motion, MIDLINE TENDERNESS. No: Meningeal Signs, Paraspinal Tenderness Respiratory/Chest: Present: Clear to Auscultation, Good Air Exchange. No: Respiratory Distress, Accessory Muscle Use Cardiovascular: Present: Regular Rate and Rhythm, Normal S1, S2. No: Murmurs Abdomen: No: Tenderness, Distention, Peritoneal Signs Back: Present: Normal Inspection. No: CVA Tenderness, Midline Tenderness, Paraspinal Tenderness Upper Extremity: Present: Normal Inspection. No: Cyanosis, Edema Lower Extremity: Present: Normal Inspection. No: Edema Neurological: Present: GCS=15, CN II-XII Intact, Speech Normal, Motor Func Grossly Intact, Normal Sensory Function, Normal Cerebellar Funct, Memory Normal Skin: Present: Warm, Dry, Normal Color. No: Rashes Psychiatric: Present: Alert, Oriented x 3, Normal Insight, Normal Concentration <Violette Menendez PA-C - Last Filed: 11/12/18 23:54> Medical Decision Making - RAD Interpretation Radiology Orders: 11/12/18 21:59 HEAD W/O CONTRAST [CT] Stat 11/12/18 22:17 CERVICAL SPINE W/O CONTRAST [CT] Stat - Medication Orders Current Medication Orders: Discontinued Medications Acetaminophen (Tylenol 325mg Tab) 975 mg PO STAT STA Stop: 11/12/18 22:00 Last Admin: 11/12/18 22:07 Dose: 975 mg Metoclopramide HCl (Reglan) 10 mg PO STAT STA Stop: 11/12/18 22:00 Last Admin: 11/12/18 22:07 Dose: 10 mg <Shane Jay - Last Filed: 11/12/18 22:31> ED Course and Treatment: 11/12/18 22:01 Impression: 33 year old female complaining of headache with photosensitivity and neck pain. Plan: -- CT Head w/o contrast -- CT Cervical Spine -- Tylenol -- Reglan -- Reassess and disposition Prior Visits: Notes and results from previous visits were reviewed. Progress Notes: 11/12/18 23:46 CT Head: BRAIN No acute intraparenchymal hemorrhage. No mass lesion. No CT evidence for acute territorial infarct. No midline shift or extra-axial collections. VENTRICLES: No hydrocephalus. ORBITS: The orbits are unremarkable. SINUSES AND MASTOIDS: The paranasal sinuses and mastoid air cells are clear. BONES: No fracture. SOFT TISSUES: Unremarkable. IMPRESSION: No acute intracranial abnormality. Electronically signed on Nov 12, 2018 11:33 Randall Aguilera M.D., KIRILL Certified By ABR & CBCCT Fellowship Trained MRI and CT Specialist CT Cervical Spine: ALIGNMENT: Bony alignment is anatomic. DEGENERATIVE CHANGES: No significant canal stenosis or neural foraminal narrowing evident. SOFT TISSUES: The prevertebral soft tissues are within normal limits. BONES: No acute fracture or aggressive appearing osseous lesion. IMPRESSION: No acute cervical spine abnormality. Electronically signed on Nov 12, 2018 11:34:01 PM EST by: Randall Aguilera M.D., MBA Certified By ABR & CBCCT Fellowship Trained MRI and CT Specialist 11/12/18 23:51 CT results d/w the patient. On exam, patient is sleepy, but arouses easily, in no acute distress, laying in bed comfortably. Repeat neuro exam shows no focal findings. Advised to follow up with primary care physician or worker's comp in 1-2 days without fail. Advised to take medication as prescribed. Return to the emergency room at any time for any new or worsening symptoms. Patient states she fully agrees with and understands discharge instructions. States that she agrees with the plan and disposition. Verbalized and repeated discharge instructions and plan. I have given the patient opportunity to ask any additional questions. - RAD Interpretation Radiology Orders: 11/12/18 21:59 HEAD W/O CONTRAST [CT] Stat CERVICAL SPINE AP & LATERAL [RAD] Stat - Medication Orders Current Medication Orders: Acetaminophen (Tylenol 325mg Tab) 975 mg PO STAT STA Stop: 11/12/18 22:00 Metoclopramide HCl (Reglan) 10 mg PO STAT STA Stop: 11/12/18 22:00 <Violette Menendez PA-C - Last Filed: 11/12/18 23:54> - PA / STUDENT LIFE COORDINATOR / Resident Statement MIKEL has reviewed & agrees with the documentation as recorded. MIKEL has examined the patient and agrees with the treatment plan. <Shane Jay - Last Filed: 11/12/18 22:31> - PA / STUDENT LIFE COORDINATOR / Resident Statement MIKEL has reviewed & agrees with the documentation as recorded. - Scribe Statement The provider has reviewed the documentation as recorded by the Agueda Currie Provider Scribe Attestation: All medical record entries made by the Scribe were at my direction and personally dictated by me. I have reviewed the chart and agree that the record accurately reflects my personal performance of the history, physical exam, medical decision making, and the department course for this patient. I have also personally directed, reviewed, and agree with the discharge instructions and disposition. <Violette Menendez PA-C - Last Filed: 11/12/18 23:54> Disposition/Present on Arrival <MistyShane - Last Filed: 11/12/18 22:31> - Present on Arrival Any Indicators Present on Arrival: No History of DVT/PE: No History of Uncontrolled Diabetes: No Urinary Catheter: No History of Decub. Ulcer: No History Surgical Site Infection Following: None - Disposition Have Diagnosis and Disposition been Completed?: Yes Disposition Time: 23:45 Patient Plan: Discharge <Violette Menendez PA-C - Last Filed: 11/12/18 23:54> - Disposition Diagnosis: Headache, Neck pain Disposition: HOME/ ROUTINE Patient Problems: Current Active Problems Problem Status Onset Headache Acute Neck pain Acute Condition: STABLE Discharge Instructions (ExitCare): Headache, Adult, Neck Pain Additional Instructions: Thank you for letting us take care of you today. You were treated for headache, neck pain. The emergency medical care you received today was directed at your acute symptoms. If you were prescribed any medication, please fill it and take as directed. It may take several days for your symptoms to resolve. Return to the Emergency Department if your symptoms worsen, do not improve, or if you have any other problems. Please contact your doctor or worker's comp in 2 days for re-evaluation and follow up. Bring any paperwork you were given at discharge with you along with any medications you are taking to your follow up visit. Our treatment cannot replace ongoing medical care by a primary care provider (PCP) outside of the emergency department. Thank you for allowing the IMT team to be part of your care today. If you had a CT scan: A Radiologist will review the ED reading if any change in treatment is needed we will contact you. Prescriptions: Metoclopramide HCl [Reglan] 10 mg PO QID PRN #20 tablet PRN Reason: Headache Referrals: Andrea Argueta MD [Primary Care Provider] - Follow up with primary Forms: [employer] (Swedish)
[2018-11-13 00:10] VITALS: BP 148/82; PULSE 78
--- NOTE | 2018-11-13 09:02 | CT ---
Date of service: 11/12/2018 PROCEDURE: CT HEAD WITHOUT CONTRAST. HISTORY: headache COMPARISON: None available. TECHNIQUE: Axial computed tomography images were obtained through the head/brain without intravenous contrast. Supplemental Coronal and Sagittal projections created and reviewed. Radiation dose: Total exam DLP = 978.89 mGy-cm. This CT exam was performed using one or more of the following dose reduction techniques: Automated exposure control, adjustment of the mA and/or kV according to patient size, and/or use of iterative reconstruction technique. FINDINGS: HEMORRHAGE: No intracranial hemorrhage. BRAIN: No mass effect or edema. No atrophy or chronic microvascular ischemic changes. VENTRICLES: Unremarkable. No hydrocephalus. CALVARIUM: Unremarkable. PARANASAL SINUSES: Unremarkable as visualized. No significant inflammatory changes. MASTOID AIR CELLS: Unremarkable as visualized. No inflammatory changes. OTHER FINDINGS: None. IMPRESSION: No acute intracranial abnormalities. No significant findings to account for the clinical presentation. Concordant results (preliminary interpretation) provided by [facility]. Procedure Completed: 23:12. Preliminary Report: Dictated and Authenticated: 23:33. Final Interpretation: 08:58. November 13, 2018
--- NOTE | 2018-11-13 09:04 | CT ---
Date of service: 11/12/2018 PROCEDURE: CT Cervical Spine without contrast HISTORY: pain COMPARISON: None available. TECHNIQUE: Axial computed tomography images were obtained of the cervical spine without the use of intravenous contrast. Coronal and sagittal reformatted images were created and reviewed. Radiation dose: Total exam DLP = 558.98 mGy-cm. This CT exam was performed using one or more of the following dose reduction techniques: Automated exposure control, adjustment of the mA and/or kV according to patient size, and/or use of iterative reconstruction technique. FINDINGS: VERTEBRAE: Reversal of the anatomic lordosis with kyphosis. Degree: Mild. No visible fracture. DISCS/SPINAL CANAL/NEURAL FORAMINA: No significant central canal or neural foraminal stenosis. Discs heights are grossly preserved. PARASPINAL SOFT TISSUES: Unremarkable. OTHER FINDINGS: None. IMPRESSION: No acute findings related to/ accounting for the clinical presentation. Concordant results (preliminary interpretation) provided by [facility]. Procedure Completed: 23:15 Preliminary Report: Dictated and Authenticated: 23:34. Final Interpretation: 09:00.
== END 2018-11-13 00:09 | disposition home or self-care (01) ==
LOC: ED 21:03
DX: M54.2 Cervicalgia (principal); R51 Headache; Z87.891 Personal history of nicotine dependence